=== PATIENT | female | born 1975 | race African-American/Black ===

== ENCOUNTER 2018-09-09 06:47 | Emergency (ER) | payer OTHER ==
[2018-09-09 06:59] VITALS: BP 139/86
--- NOTE | 2018-09-09 07:39 | ED Physician Documentation ---
History of Present Illness - Stated complaint Stated Complaint: SORE THROAT/BILAT EAR PX - Chief complaint Chief Complaint: Heent - Additonal information Additional information: hx from pt 42 f denies preg to ED with several days of sore throat subj fever ear pain no cough no abd pain Review of Systems Constitutional: reports: Fever Ears: reports: Ear pain Throat: reports: Sore throat Respiratory: denies: Cough GI: denies: Abdominal Pain : denies: Now EGA Skin: denies: Rash PD PAST MEDICAL HISTORY - Past Medical History Past Medical History: Yes Cardiovascular: Murmur Endocrine/Autoimmune: Other Psych: Depression - Past Surgical History Past Surgical History: No - Present Medications Home Medications: Ambulatory Orders Medication Instructions Recorded Confirmed Acyclovir 800 mg PO 5XD 5 Days tablet 05/10/15 Amoxicillin/Potassium Clav 1 tab PO BID 05/10/15 05/10/15 [Augmentin 875-125 Tablet] Cephalexin [Keflex] 500 mg PO Q6HR 10 Days capsule 05/10/15 Ondansetron Odt [Zofran] 4 mg TL Q6H PRN #10 tablet 05/10/15 oxyCODONE/ACET 5/325 [Percocet 5 1 each PO Q4-6H PRN #15 tablet 05/10/15 mg/325 mg] Amoxicillin 500 mg PO Q8HR #30 capsule 09/09/18 - Allergies Allergies/Adverse Reactions: Allergies Allergy/AdvReac Type Severity Reaction Status Date / Time acetaminophen [From Vicodin] Allergy Intermediate Unknown Verified 09/09/18 07:20 hydrocodone bitartrate * Allergy Intermediate Unknown Verified 09/09/18 07:20 [From Vicodin] - Social History Does the pt smoke?: No Smoking Status: Never smoker Does the pt drink ETOH?: No Does the pt have substance abuse?: No - Immunizations Immunizations are current?: Yes - POLST Patient has POLST: No PD ED PE NORMAL - Vitals Vital signs reviewed: Yes - HEENT HEENT: Other (soft palate petecchiae, tonsillar erythema and exudate). No: Ears normal (dull and retracted) - Neck Neck: Supple, no meningeal sign. No: No adenopathy (anterior no posterior) - Cardiac Cardiac: RRR - Respiratory Respiratory: No respiratory distress, Clear bilaterally - Abdomen Abdomen: No organomegaly - Derm Derm: Normal color - Neuro Neuro: Alert and oriented X 3 Results - Vitals Vitals: Vital Signs - 24 hr 09/09/18 06:50 Temperature 37.0 C Heart Rate 96 Respiratory 16 Rate Blood Pressure 139/86 H O2 Saturation 98 Oxygen O2 Source Room air - Labs Labs: Laboratory Tests 09/09/18 07:12 Group A Strep Rapid Negative PD MEDICAL DECISION MAKING - ED course ED course: pt meets all centor criteria and has soft palate petcchiae exudate and odor of strep we discussed tx now vs wait on cx she prefers tx now understanding dx is not 100% certain pending cx Departure - Departure Disposition: 01 Home, Self Care Clinical Impression: Exudative pharyngitis Condition: Good Instructions: ED Strep Pharyngitis Poss Prescriptions: Amoxicillin 500 mg PO Q8HR #30 capsule Comments: Rest Drink plenty of fluids Motrin as needed for pain or fever Forms: Activity restrictions
== END 2018-09-09 08:01 | disposition home or self-care (01) ==
LOC: ED 06:47
DX: J02.9 Acute pharyngitis, unspecified (principal)
CPT/HCPCS: 87070; 87430; 99283

== ENCOUNTER 2019-09-27 14:05 | Emergency (ER) | payer OTHER ==
[2019-09-27 14:15] VITALS: BP 149/87
[2019-09-27] MEDS ORDERED: BENZONATATE 100 MG CAPSULE PO STA (14:25)
[2019-09-27] MEDS ORDERED: ALBUTEROL NEB 2.5 MG/3 ML INH STA (14:25)
--- NOTE | 2019-09-27 14:28 | ED Physician Documentation ---
PD HPI URI - Stated complaint Stated Complaint: COUGH X3 - Chief complaint Chief Complaint: Resp - History obtained from History obtained from: Patient - History of Present Illness Timing - onset: How many days ago (3) Timing duration: Days (3) Timing details: Gradual onset Pain level max: 0 Pain level now: 0 Associated symptoms: Nasal congestion, Rhinorrhea, Dry cough, Dyspnea (wheezing). No: Fever, Chills, Sore throat Contributing factors: Sick contact Improves by: Rest Worsened by: Activity, Breathing Recently seen: Not recently seen Review of Systems Constitutional: denies: Fever, Chills Cardiac: denies: Chest pain / pressure Respiratory: denies: Wheezing GI: denies: Vomiting, Diarrhea Skin: denies: Rash Musculoskeletal: denies: Neck pain, Back pain Neurologic: denies: Headache PD PAST MEDICAL HISTORY - Past Medical History Past Medical History: Yes Cardiovascular: Murmur Endocrine/Autoimmune: Other Psych: Depression - Past Surgical History Past Surgical History: No - Present Medications Home Medications: Ambulatory Orders Medication Instructions Recorded Confirmed Acyclovir 800 mg PO 5XD 5 Days tablet 05/10/15 Amoxicillin/Potassium Clav 1 tab PO BID 05/10/15 05/10/15 [Augmentin 875-125 Tablet] Cephalexin [Keflex] 500 mg PO Q6HR 10 Days capsule 05/10/15 Ondansetron Odt [Zofran] 4 mg TL Q6H PRN #10 tablet 05/10/15 oxyCODONE/ACET 5/325 [Percocet 5 1 each PO Q4-6H PRN #15 tablet 05/10/15 mg/325 mg] Amoxicillin 500 mg PO Q8HR #30 capsule 09/09/18 Albuterol Sulf [Ventolin Hfa 1 - 2 puffs INH Q4HR PRN #1 inhaler 09/27/19 Inhaler] Benzonatate [Tessalon Perle] 100 - 200 mg PO TID PRN #30 capsule 09/27/19 - Allergies Allergies/Adverse Reactions: Allergies Allergy/AdvReac Type Severity Reaction Status Date / Time acetaminophen [From Vicodin] Allergy Intermediate Unknown Verified 09/27/19 14:12 hydrocodone bitartrate * Allergy Intermediate Unknown Verified 09/27/19 14:12 [From Vicodin] - Social History Does the pt smoke?: No Smoking Status: Never smoker Does the pt drink ETOH?: No Does the pt have substance abuse?: No - Immunizations Immunizations are current?: Yes - POLST Patient has POLST: No PD ED PE NORMAL - Vitals Vital signs reviewed: Yes - General General: Alert and oriented X 3, No acute distress - HEENT HEENT: Ears normal, Moist mucous membranes, Pharynx benign - Neck Neck: Supple, no meningeal sign - Cardiac Cardiac: RRR - Respiratory Respiratory: No respiratory distress, Other (Mild diminished breath sounds bilaterally with wheezing) - Abdomen Abdomen: Soft, Non tender, Non distended - Derm Derm: Warm and dry, No rash - Extremities Extremities: No edema - Neuro Neuro: Alert and oriented X 3 Results - Vitals Vitals: Vital Signs - 24 hr 09/27/19 09/27/19 09/27/19 14:12 14:45 15:00 Temperature 37.2 C Heart Rate 95 88 88 Respiratory 17 20 20 Rate Blood Pressure 149/87 H O2 Saturation 98 98 Oxygen O2 Source Room air PD MEDICAL DECISION MAKING - ED course Complexity details: re-evaluated patient, considered differential, d/w patient ED course: Patient feels better after nebulizer treatment. She is well-appearing, nontoxic. Afebrile. No hypoxia. No respiratory distress. Will prescribe an inhaler and cough medication for home. Appears to have a viral upper respiratory infection. Patient counseled regarding signs and symptoms for which I believe and urgent re-evaluation would be necessary. Patient with good understanding of and agreement to plan and is comfortable going home at this time This document was made in part using voice recognition software. While efforts are made to proofread this document, sound alike and grammatical errors may occur. Departure - Departure Disposition: 01 Home, Self Care Clinical Impression: Viral URI with cough Condition: Good Instructions: ED URI Viral Follow-Up: JUANPABLO ALY [Primary Care Provider] - Within 1 week (if not better) Prescriptions: Albuterol Sulf [Ventolin Hfa Inhaler] 1 - 2 puffs INH Q4HR PRN #1 inhaler PRN Reason: Shortness Of Air/Wheezing Benzonatate [Tessalon Perle] 100 - 200 mg PO TID PRN #30 capsule PRN Reason: Cough Comments: Return if you worsen. Follow-up with your doctor for further care if you are no t better in the next week. Discharge Date/Time: 09/27/19 15:24
== END 2019-09-27 15:24 | disposition home or self-care (01) ==
LOC: ED 14:05
DX: J06.9 Acute upper respiratory infection, unspecified (principal)
CPT/HCPCS: 94640; 99283; 99284; A9270